=== PATIENT | male | born 2000 | race Caucasian/White ===

== ENCOUNTER 2021-02-28 12:49 | Emergency (ER) | payer OTHER ==
[~2021-02-28] VITALS: Ht 185.4 cm; Wt 72.6 kg
== END 2021-02-28 15:30 | disposition home or self-care (01) ==
LOC: ER 12:49
DX: M54.5 Low back pain (principal); G89.29 Other chronic pain; Z91.030 Bee allergy status; Z91.09 Other allergy status, other than to drugs and biological substances
CPT/HCPCS: 99282

== ENCOUNTER 2022-12-20 18:59 | Emergency (ER) | payer OTHER ==
[~2022-12-20] VITALS: Ht 185.4 cm; Wt 68.0 kg
[2022-12-20] MEDS ORDERED: KETO10 PO (19:47)
[2022-12-20] MEDS ORDERED: AMOCLA875 PO ×2 (19:47→19:48)
== END 2022-12-20 20:04 | disposition home or self-care (01) ==
LOC: ER 18:59
DX: R68.84 Jaw pain (principal); K08.89 Other specified disorders of teeth and supporting structures; Z91.030 Bee allergy status; Z88.8 Allergy status to other drugs, medicaments and biological substances
CPT/HCPCS: 99283